=== PATIENT | female | born 1950 | race African-American/Black ===

== ENCOUNTER 2019-04-24 12:51 | Inpatient (IN) | payer OTHER ==
--- NOTE | 2019-04-24 13:19 | PDOC ---
Rapid Medical Evaluation Time Seen by Provider: 04/24/19 13:14 Medical Evaluation: Allergies Allergy/AdvReac Type Severity Reaction Status Date / Time No Known Allergies Allergy Verified 02/23/13 19:53 04/24/19 13:14 This patient had a rapid evaluation in triage cc: adverse reaction to antibiotics HPI: Patient reports diagnosed with pneumonia taking antibiotics but vomits whenever she takes the antibiotics. Continues with coughing and shortness of breath PE: appears well, hoarseness of voice lungs + rales on left lower lung heart [id number] Orders: chest xray This patient will proceed to main ed for further evaluation Discharge Disposition - Diagnosis Vomiting - Referrals - Patient Instructions - Post Discharge Activity
--- NOTE | 2019-04-24 14:25 | PDOC ---
Attending Attestation - Resident Resident Name: Shady Eaton - HPI HPI: 04/24/19 17:55 Pt presents to the ED complaining of productive cough that is not resolving with outpatient doxycycline. Denies fever. Complains of nausea and vomiting with taking the antibiotic only. History of pulmonary fibrosis. - Physicial Exam PE: 04/24/19 18:00 Agree with resident exam. PAtient is well appearing and is speaking in complete sentences, but has diffuse rhonchi on exam. - Medical Decision Making 04/24/19 18:02 Pt presents to the ED for PNA. Given that the patient has not improved on antibiotic treatment, will admit to medicine for inpatient treatment. 04/24/19 18:02
[2019-04-24] MEDS ORDERED: LACTATED RINGERS SOLUTION 1000 ML INFUS.BAG IV STA (14:35)
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
[2019-04-24] MEDS ORDERED: CEFTRIAXONE 2,000 MG in DEXTROSE 5%-WATER - 50 ML IVPB ONE (14:37)
[2019-04-24] MEDS ORDERED: AZITHROMYCIN IVPB 500 MG in DEXTROSE 5%-WATER - 250 ML IVPB ONE (14:38)
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
[2019-04-24] MEDS ORDERED: ACETAMINOPHEN 1000 MG/100 ML VIAL (NON FORMULARY) IVPB ONE (14:51)
[2019-04-24] MEDS ORDERED: ACETAMINOPHEN INJECTION 100 ML IVPB ONE (14:58)
[2019-04-24] MEDS ORDERED: AZITHROMYCIN IVPB 500 MG/250 ML BAG IVPB ONE (15:21)
[2019-04-24 15:22] LABS: BASO % 0.4 % (0-2.0); HEMATOCRIT 43.4 % (32.4-45.2); LYMPH % 54.5 % (8-40); MCH 23.2 pg (25.7-33.7); MCHC 32.4 g/dl (32.0-36.0); MEAN CELL VOLUME 71.7 fl (80-96); MEAN PLT VOLUME 8.2 fl (7.5-11.1); MONO % 18.5 % (3.8-10.2); NEUT % 26.6 % (42.8-82.8); PLATELET COUNT 205 K/MM3 (134-434); RBC 6.05 M/mm3 (3.60-5.2); WHITE BLOOD COUNT 3.4 K/mm3 (4.0-10.0)
[2019-04-24] MEDS ORDERED: CEFTRIAXONE 2 GM/100 ML BAG IVPB ONE (15:22)
[2019-04-24] MEDS ORDERED: ALBUTEROL SO4 2.5/IPRATROPIUM 0.5 INH SOL 3 ML VIAL.NEB. NEB ONE ×2 (15:22→15:46)
[2019-04-24 15:24] LABS: VENOUS PC02 45.1 mmHg (38-52); VENOUS PH 7.42 (7.31-7.41); VENOUS PO2 < 49 mmHg (28-48)
[2019-04-24 15:35] LABS: INR 1.1 (0.83-1.09)
[2019-04-24 15:35] LABS: URINE APPEARANCE CLEAR; URINE BILIRUBIN NEGATIVE (NEGATIVE); URINE COLOR YELLOW; URINE GLUCOSE (UA) NEGATIVE (NEGATIVE); URINE KETONE 1+ (NEGATIVE); URINE LEUK ESTERASE NEGATIVE (NEGATIVE); URINE NITRITE NEGATIVE (NEGATIVE); URINE PROTEIN NEGATIVE (NEGATIVE)
[2019-04-24 15:38] LABS: ACTIVATED PTT 33.4 SECONDS (25.2-36.5)
[2019-04-24 15:51] LABS: ALBUMIN 3.7 g/dl (3.4-5.0); ALK PHOS 61 U/L (45-117); ANION GAP 9 MMOL/L (8-16); BILIRUBIN,TOTAL 0.5 mg/dL (0.2-1); BLOOD UREA NITROGEN 10.5 mg/dL (7-18); CALCIUM 8.5 mg/dL (8.5-10.1); CHLORIDE 102 mmol/L (98-107); CO2 29 mmol/L (21-32); CREATININE 0.9 mg/dL (0.55-1.3); GLUCOSE,RANDOM 91 mg/dL (74-106); POTASSIUM 3.4 mmol/L (3.5-5.1); SGOT/AST 39 U/L (15-37); SGPT/ALT 38 U/L (13-61); SODIUM 140 mmol/L (136-145); TOT PROT 7.6 g/dl (6.4-8.2)
--- NOTE | 2019-04-24 16:27 | EKG ---
Test Reason : Blood Pressure : / mmHG Vent. Rate : 088 BPM Atrial Rate : 088 BPM P-R Int : 168 ms QRS Dur : 076 ms QT Int : 370 ms P-R-T Axes : 069 065 026 degrees QTc Int : 447 ms NORMAL SINUS RHYTHM POSSIBLE LEFT ATRIAL ENLARGEMENT POOR R WAVE PROGRESSION ABNORMAL ECG WHEN COMPARED WITH ECG OF 23-FEB-2013 20:30, NO SIGNIFICANT CHANGE WAS FOUND Confirmed by Jules Doyle ([id number]) on 04/24/2019 4:26:53 PM Referred By: Confirmed By:Jules Doyle
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
[2019-04-24] MEDS ORDERED: ALBUTEROL SO4 0.083% IH SOL 2.5 MG/3 ML VIAL.NEB. NEB PRN (20:28)
[2019-04-25] MEDS: LEVOTHYROXINE NA 88 MCG TABLET (FP) PO SCH (06:20)
[2019-04-25 08:30] LABS: BASO % 0.9 % (0-2.0); EOS % 0.1 % (0-4.5); HEMATOCRIT 38.8 % (32.4-45.2); HEMOGLOBIN 12.4 GM/dL (10.7-15.3); LYMPH % 58.3 % (8-40); MCHC 31.9 g/dl (32.0-36.0); MONO % 19.7 % (3.8-10.2); PLATELET COUNT 184 K/MM3 (134-434); RBC 5.39 M/mm3 (3.60-5.2); RDW 15.8 % (11.6-15.6); WHITE BLOOD COUNT 3.3 K/mm3 (4.0-10.0)
[2019-04-25 08:48] LABS: ALBUMIN 3.2 g/dl (3.4-5.0); BILIRUBIN,TOTAL 0.7 mg/dL (0.2-1); BLOOD UREA NITROGEN 6.6 mg/dL (7-18); CALCIUM 7.8 mg/dL (8.5-10.1); CREATININE 0.7 mg/dL (0.55-1.3); POTASSIUM 3.5 mmol/L (3.5-5.1); TOT PROT 6.6 g/dl (6.4-8.2)
[2019-04-25] MEDS ORDERED: cefTRIAXone SODIUM 1 GM VIAL ONE (09:08)
[2019-04-25] MEDS ORDERED: DEXTROSE 5%-WATER - 50 ML IVPB ONE (09:09)
[2019-04-25] MEDS: CEFTRIAXONE 1 GM in DEXTROSE 5%-WATER - 50 ML IVPB SCH (09:23)
[2019-04-25] MEDS: AZITHROMYCIN IVPB 500 MG/250 ML BAG IVPB SCH (10:06)
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
[2019-04-25] MEDS: methylPREDNISolone NA SUCC 40 MG/1 ML VIAL IVPUSH SCH (16:02)
[2019-04-25 16:04] VITALS: BMI 33.2
[2019-04-25] MEDS: IBUPROFEN 400 MG TABLET (FP) PO ONE ×2 (17:48→18:58)
[2019-04-25] MEDS ORDERED: ACETAMINOPHEN 325 MG TABLET (FP) PO ONE (19:45)
[2019-04-25] MEDS ORDERED: ACETAMINOPHEN 325 MG TABLET (FP) PO PRN (21:45)
[2019-04-26] MEDS: methylPREDNISolone NA SUCC 40 MG/1 ML VIAL IVPUSH SCH ×2 (02:22→14:16)
[2019-04-26] MEDS: LEVOTHYROXINE NA 88 MCG TABLET (FP) PO SCH (06:43)
--- NOTE | 2019-04-26 09:42 | PN ---
Progress Note, Physician History of Present Illness: Pt's breathing is slightly better, no SOB, no CP, no palpitations, no abd pain, o diarrhea. Pt's is c/o BROWER, frontal for more than a week. Pt 's is at bedside; both are informing me that they decided not ot take the Prednisone as has to many SE. - Current Medication List Current Medications: Active Medications Acetaminophen (Tylenol -) 650 mg PO Q6H PRN PRN Reason: PAIN Albuterol Sulfate (Ventolin 0.083% Nebulizer Soln -) 1 amp NEB Q6H PRN PRN Reason: SHORT OF BREATH/WHEEZING Azithromycin (Zithromax 500mg Ivpb (Pre-Docked)) 500 mg in 250 mls @ 250 mls/ hr IVPB DAILY [facility] Last Admin: 04/25/19 10:06 Dose: 250 mls/hr Ceftriaxone Sodium 1 gm/ (Dextrose) 50 mls @ 100 mls/hr IVPB DAILY [facility] Last Admin: 04/25/19 09:23 Dose: 100 mls/hr Levothyroxine Sodium (Synthroid -) 88 mcg PO ACBK [facility] Last Admin: 04/26/19 06:43 Dose: 88 mcg Methylprednisolone Sodium Succinate (Solu-Medrol -) 40 mg IVPUSH Q12H [facility] Last Admin: 04/26/19 02:22 Dose: 40 mg Metoprolol Succinate (Toprol Xl -) 50 mg PO DAILY [facility] Last Admin: 04/25/19 09:23 Dose: 50 mg - Objective Vital Signs: Vital Signs Constitutional: Yes: No Distress, Calm Cardiovascular: Yes: Regular Rate and Rhythm, S1, S2 Respiratory: Yes: Regular, Rhonchi (bilaterally) Gastrointestinal: Yes: Normal Bowel Sounds, Soft. No: Tenderness Edema: No Neurological: Yes: Alert, Oriented Labs: CBC, BMP 04/25/19 07:30 04/25/19 07:34 INR, PTT INR 1.10 (0.83-1.09) H 04/24/19 14:45 Problem List - Problems (1) Hypoxia Code(s): R09.02 - HYPOXEMIA (2) Leukopenia Code(s): D72.819 - DECREASED WHITE BLOOD CELL COUNT, UNSPECIFIED Qualifiers: Leukopenia type: unspecified Qualified Code(s): D72.819 - Decreased white blood cell count, unspecified (3) Pneumonia Code(s): J18.9 - PNEUMONIA, UNSPECIFIED ORGANISM Qualifiers: Pneumonia type: due to unspecified organism Laterality: unspecified laterality Lung location: unspecified part of lung Qualified Code(s): J18.9 - Pneumonia, unspecified organism (4) HTN (hypertension) Code(s): I10 - ESSENTIAL (PRIMARY) HYPERTENSION (5) Hypothyroidism Code(s): E03.9 - HYPOTHYROIDISM, UNSPECIFIED Assessment/Plan IV antibiotics Pulmonary consult is appreciated. Incentive spirometry OOBTC Pt's condition was d/w pt's nurse (Olivia) at bedside. I recommended to pt ot talk with senior technical specialist about her concer. Tylenol and Motrin for BROWER This is a late entry ( pt as seen around 6:30 PM). AM labs
[2019-04-26 11:08] LABS: HEMATOCRIT 42.3 % (32.4-45.2); HEMOGLOBIN 13.6 GM/dL (10.7-15.3); MCH 23.1 pg (25.7-33.7); MCHC 32.2 g/dl (32.0-36.0); MEAN CELL VOLUME 71.7 fl (80-96); MEAN PLT VOLUME 8.2 fl (7.5-11.1); PLATELET COUNT 209 K/MM3 (134-434); RBC 5.91 M/mm3 (3.60-5.2); RDW 15.9 % (11.6-15.6); WHITE BLOOD COUNT 2.3 K/mm3 (4.0-10.0)
[2019-04-26 11:35] LABS: ALBUMIN 3.6 g/dl (3.4-5.0); BILIRUBIN,TOTAL 0.4 mg/dL (0.2-1); BLOOD UREA NITROGEN 6.6 mg/dL (7-18); CALCIUM 8.5 mg/dL (8.5-10.1); POTASSIUM 3.2 mmol/L (3.5-5.1); TOT PROT 7.8 g/dl (6.4-8.2)
[2019-04-26] MEDS ORDERED: cefTRIAXone SODIUM 1 GM VIAL ONE (12:06)
[2019-04-26] MEDS ORDERED: DEXTROSE 5%-WATER - 50 ML IVPB ONE (12:07)
--- NOTE | 2019-04-26 12:28 | PN ---
Progress Note, Physician History of Present Illness: PULMONARY ALERT,FEELING BETTER,LESS DYSPNEIC - Current Medication List Current Medications: Active Medications Acetaminophen (Tylenol -) 650 mg PO Q6H PRN PRN Reason: PAIN Albuterol Sulfate (Ventolin 0.083% Nebulizer Soln -) 1 amp NEB Q6H PRN PRN Reason: SHORT OF BREATH/WHEEZING Azithromycin (Zithromax 500mg Ivpb (Pre-Docked)) 500 mg in 250 mls @ 250 mls/ hr IVPB DAILY [facility] Last Admin: 04/25/19 10:06 Dose: 250 mls/hr Ceftriaxone Sodium 1 gm/ (Dextrose) 50 mls @ 100 mls/hr IVPB DAILY [facility] Last Admin: 04/25/19 09:23 Dose: 100 mls/hr Levothyroxine Sodium (Synthroid -) 88 mcg PO ACBK [facility] Last Admin: 04/26/19 06:43 Dose: 88 mcg Methylprednisolone Sodium Succinate (Solu-Medrol -) 40 mg IVPUSH Q12H [facility] Last Admin: 04/26/19 02:22 Dose: 40 mg Metoprolol Succinate (Toprol Xl -) 50 mg PO DAILY [facility] Last Admin: 04/26/19 10:55 Dose: 50 mg - Objective Vital Signs: Vital Signs Temperature 98.4 F 04/26/19 06:00 Pulse Rate 68 04/26/19 06:00 Respiratory Rate 18 04/26/19 06:00 Blood Pressure 125/62 04/26/19 06:00 O2 Sat by Pulse Oximetry (%) 94 L 04/25/19 21:00 Constitutional: Yes: Well Nourished, Calm Eyes: Yes: WNL HENT: Yes: WNL Neck: Yes: WNL Cardiovascular: Yes: Regular Rate and Rhythm, S1, S2 Respiratory: Yes: Wheezes (SCATTERED KAI WHEEZES) Gastrointestinal: Yes: Normal Bowel Sounds, Soft Extremities: Yes: WNL Edema: No Labs: CBC, BMP 04/26/19 10:25 04/26/19 10:25 INR, PTT INR 1.10 (0.83-1.09) H 04/24/19 14:45 Assessment/Plan Problem List - Problems (1) HTN (hypertension) Code(s): I10 - ESSENTIAL (PRIMARY) HYPERTENSION (2) Hypothyroidism Code(s): E03.9 - HYPOTHYROIDISM, UNSPECIFIED (3) Hypoxia Code(s): R09.02 - HYPOXEMIA (4) Pneumonia Code(s): J18.9 - PNEUMONIA, UNSPECIFIED ORGANISM Qualifiers: Pneumonia type: due to unspecified organism Laterality: unspecified laterality Lung location: unspecified part of lung Qualified Code(s): J18.9 - Pneumonia, unspecified organism (5) SOB (shortness of breath) Code(s): R06.02 - SHORTNESS OF BREATH (6) Tachypnea Code(s): R06.82 - TACHYPNEA, NOT ELSEWHERE CLASSIFIED Assessment/Plan ABX: Rocephin & Zithromax Supplemental O2 as needed BD TX Short course of Medrol No smoking was discussed Outpatient PFTs once stable VTE prophylaxis Chest ct DR CONROY
[2019-04-26] MEDS: CEFTRIAXONE 1 GM in DEXTROSE 5%-WATER - 50 ML IVPB SCH (13:20)
[2019-04-26] MEDS: AZITHROMYCIN IVPB 500 MG/250 ML BAG IVPB SCH (14:16)
[2019-04-26] MEDS ORDERED: POTASSIUM CHLORIDE TABS 20 MEQ TABLET.ER (FP) PO ONE (17:25)
--- NOTE | 2019-04-26 17:29 | PN ---
Progress Note, Physician History of Present Illness: Pt's breathing is slightly better, no SOB, no CP, no palpitations, no abd pain, o diarrhea. pt is sitting comfortably in the chair. - Current Medication List Current Medications: Active Medications Acetaminophen (Tylenol -) 650 mg PO Q6H PRN PRN Reason: PAIN Albuterol Sulfate (Ventolin 0.083% Nebulizer Soln -) 1 amp NEB Q6H PRN PRN Reason: SHORT OF BREATH/WHEEZING Azithromycin (Zithromax 500mg Ivpb (Pre-Docked)) 500 mg in 250 mls @ 250 mls/ hr IVPB DAILY [facility] Last Admin: 04/26/19 14:16 Dose: 250 mls/hr Ceftriaxone Sodium 1 gm/ (Dextrose) 50 mls @ 100 mls/hr IVPB DAILY [facility] Last Admin: 04/26/19 13:20 Dose: 100 mls/hr Levothyroxine Sodium (Synthroid -) 88 mcg PO ACBK [facility] Last Admin: 04/26/19 06:43 Dose: 88 mcg Methylprednisolone Sodium Succinate (Solu-Medrol -) 40 mg IVPUSH Q12H [facility] Last Admin: 04/26/19 14:16 Dose: 40 mg Metoprolol Succinate (Toprol Xl -) 50 mg PO DAILY [facility] Last Admin: 04/26/19 10:55 Dose: 50 mg Montelukast Sodium (Singulair -) 10 mg PO ONCE ONE Stop: 04/26/19 17:27 Potassium Chloride (K-Dur -) 40 meq PO ONCE ONE Stop: 04/26/19 17:26 - Objective Vital Signs: Vital Signs Temperature 98.4 F 04/26/19 14:00 Pulse Rate 74 04/26/19 14:00 Respiratory Rate 18 04/26/19 14:00 Blood Pressure 145/67 04/26/19 14:00 O2 Sat by Pulse Oximetry (%) 94 L 04/25/19 21:00 Constitutional: Yes: No Distress, Calm Cardiovascular: Yes: Regular Rate and Rhythm, S1, S2 Respiratory: Yes: Regular, Rhonchi (bilateral). No: Wheezes Gastrointestinal: Yes: Normal Bowel Sounds, Soft. No: Tenderness Edema: No Neurological: Yes: Alert, Oriented Labs: CBC, BMP 04/26/19 10:25 04/26/19 10:25 INR, PTT INR 1.10 (0.83-1.09) H 04/24/19 14:45 Problem List - Problems (1) Hypoxia Code(s): R09.02 - HYPOXEMIA (2) Leukopenia Code(s): D72.819 - DECREASED WHITE BLOOD CELL COUNT, UNSPECIFIED Qualifiers: Leukopenia type: unspecified Qualified Code(s): D72.819 - Decreased white blood cell count, unspecified (3) Pneumonia Code(s): J18.9 - PNEUMONIA, UNSPECIFIED ORGANISM Qualifiers: Pneumonia type: due to unspecified organism Laterality: unspecified laterality Lung location: unspecified part of lung Qualified Code(s): J18.9 - Pneumonia, unspecified organism (4) HTN (hypertension) Code(s): I10 - ESSENTIAL (PRIMARY) HYPERTENSION (5) Hypothyroidism Code(s): E03.9 - HYPOTHYROIDISM, UNSPECIFIED (6) Hypokalemia Code(s): E87.6 - HYPOKALEMIA Assessment/Plan IV antibiotics Pulmonary consult is appreciated. Incentive spirometry OOBTC Replete K; monitor in AM, check Mg Pre and post in AM AM labs
[2019-04-26] MEDS: MONTELUKAST NA 10 MG TABLET PO ONE ×2 (18:53→21:29)
[2019-04-27] MEDS: methylPREDNISolone NA SUCC 40 MG/1 ML VIAL IVPUSH SCH ×2 (02:55→14:32)
[2019-04-27] MEDS: LEVOTHYROXINE NA 88 MCG TABLET (FP) PO SCH (06:30)
[2019-04-27 07:54] LABS: HEMATOCRIT 41.5 % (32.4-45.2); HEMOGLOBIN 13.6 GM/dL (10.7-15.3); MCH 23.7 pg (25.7-33.7); MCHC 32.9 g/dl (32.0-36.0); MEAN CELL VOLUME 72.1 fl (80-96); MEAN PLT VOLUME 8.4 fl (7.5-11.1); PLATELET COUNT 204 K/MM3 (134-434); RBC 5.75 M/mm3 (3.60-5.2); RDW 15.7 % (11.6-15.6)
[2019-04-27 08:17] LABS: ALBUMIN 3.5 g/dl (3.4-5.0); BILIRUBIN,TOTAL 0.4 mg/dL (0.2-1); BLOOD UREA NITROGEN 8.7 mg/dL (7-18); CALCIUM 8.3 mg/dL (8.5-10.1); CREATININE 0.7 mg/dL (0.55-1.3); MAGNESIUM 2.6 mg/dL (1.8-2.4); POTASSIUM 3.8 mmol/L (3.5-5.1); TOT PROT 7.2 g/dl (6.4-8.2)
--- NOTE | 2019-04-27 08:26 | PN ---
Progress Note, Physician Chief Complaint: feeling better less cough less SOB afebrile no CP - Current Medication List Current Medications: Active Medications Acetaminophen (Tylenol -) 650 mg PO Q6H PRN PRN Reason: PAIN Albuterol Sulfate (Ventolin 0.083% Nebulizer Soln -) 1 amp NEB Q6H PRN PRN Reason: SHORT OF BREATH/WHEEZING Azithromycin (Zithromax 500mg Ivpb (Pre-Docked)) 500 mg in 250 mls @ 250 mls/hr IVPB DAILY [facility] Last Admin: 04/26/19 14:16 Dose: 250 mls/hr Documented by: Ceftriaxone Sodium 1 gm/ (Dextrose) 50 mls @ 100 mls/hr IVPB DAILY [facility] Last Admin: 04/26/19 13:20 Dose: 100 mls/hr Documented by: Levothyroxine Sodium (Synthroid -) 88 mcg PO ACBK [facility] Last Admin: 04/26/19 06:43 Dose: 88 mcg Documented by: Methylprednisolone Sodium Succinate (Solu-Medrol -) 40 mg IVPUSH Q12H [facility] Last Admin: 04/27/19 02:55 Dose: 40 mg Documented by: Metoprolol Succinate (Toprol Xl -) 50 mg PO DAILY [facility] Last Admin: 04/26/19 10:55 Dose: 50 mg Documented by: - Objective Vital Signs: Vital Signs Temperature 98.7 F 04/27/19 06:00 Pulse Rate 66 04/27/19 06:00 Respiratory Rate 18 04/27/19 06:00 Blood Pressure 140/68 04/27/19 06:00 O2 Sat by Pulse Oximetry (%) 97 04/26/19 21:00 Constitutional: Yes: No Distress, Calm Eyes: Yes: Conjunctiva Clear HENT: Yes: Atraumatic Neck: Yes: Supple Cardiovascular: Yes: Regular Rate and Rhythm Respiratory: Yes: CTA Bilaterally Gastrointestinal: Yes: Soft. No: Tenderness Musculoskeletal: No: Joint Stiffness, Joint Swelling Extremities: No: Cold, Cool, Cyanosis Edema: No Integumentary: No: Rash, Venous Stasis Changes Neurological: Yes: Alert, Oriented ...Motor Strength: WNL Psychiatric: Yes: Alert, Oriented. No: Agitated, Suicidal Ideation Labs: CBC, BMP 04/27/19 07:00 04/27/19 07:00 INR, PTT INR 1.10 (0.83-1.09) H 04/24/19 14:45 - ....Imaging Other: Report Reviewed Assessment/Plan 69 YOF admitted with PNA and COPD exac IV ATB; iv steroids pulmonary f/u; pt said she saw recently cardio dr Alexander outpt and has f/u with him outpt soon PCP dr Jordy Mcpherson CBC low WBC at admission, NL Now; might be sec to PNA; needs f/u outpt heme dr Tejeda d/w pt; spep upep sent - pt advised to call me next week for results
[2019-04-27] MEDS ORDERED: DEXTROSE 5%-WATER - 50 ML IVPB ONE (09:08)
[2019-04-27] MEDS ORDERED: cefTRIAXone SODIUM 1 GM VIAL ONE (09:08)
[2019-04-27] MEDS: AZITHROMYCIN IVPB 500 MG/250 ML BAG IVPB SCH (09:33)
[2019-04-27] MEDS: HEPARIN NA (PORCINE) 5,000 UNITS/ML 1ML VIAL SQ SCH ×2 (09:33→21:26)
[2019-04-27] MEDS: CEFTRIAXONE 1 GM in DEXTROSE 5%-WATER - 50 ML IVPB SCH (09:34)
--- NOTE | 2019-04-27 10:32 | PN ---
Progress Note (short form) - Note Progress Note: Ambulating in the hallway. Breathing and cough are improving. No acute events overnight. Intake & Output 04/24/19 04/25/19 04/26/19 04/27/19 23:59 23:59 23:59 23:59 Intake Total 3300 1380 600 140 Balance 3300 1380 600 140 Weight 206 lb 3.2 oz 206 lb Last Vital Signs Temp Pulse Resp BP Pulse Ox 98.2 F 76 18 147/85 97 04/27/19 09:02 04/27/19 09:02 04/27/19 09:02 04/27/19 09:02 04/26/19 21:00 Active Medications Acetaminophen (Tylenol -) 650 mg PO Q6H PRN PRN Reason: PAIN Albuterol Sulfate (Ventolin 0.083% Nebulizer Soln -) 1 amp NEB Q6H PRN PRN Reason: SHORT OF BREATH/WHEEZING Heparin Sodium (Porcine) (Heparin -) 5,000 unit SQ BID [facility] Last Admin: 04/27/19 09:33 Dose: Not Given Documented by: Azithromycin (Zithromax 500mg Ivpb (Pre-Docked)) 500 mg in 250 mls @ 250 mls/hr IVPB DAILY [facility] Last Admin: 04/27/19 09:33 Dose: 250 mls/hr Documented by: Ceftriaxone Sodium 1 gm/ (Dextrose) 50 mls @ 100 mls/hr IVPB DAILY [facility] Last Admin: 04/27/19 09:34 Dose: 100 mls/hr Documented by: Levothyroxine Sodium (Synthroid -) 88 mcg PO ACBK [facility] Last Admin: 04/27/19 06:30 Dose: 88 mcg Documented by: Methylprednisolone Sodium Succinate (Solu-Medrol -) 40 mg IVPUSH Q12H [facility] Last Admin: 04/27/19 02:55 Dose: 40 mg Documented by: Metoprolol Succinate (Toprol Xl -) 50 mg PO DAILY [facility] Last Admin: 04/27/19 09:33 Dose: 50 mg Documented by: Constitutional: Yes: Well Nourished, Calm Eyes: Yes: WNL HENT: Yes: WNL Neck: Yes: WNL Cardiovascular: Yes: Regular Rate and Rhythm, S1, S2 Respiratory: Yes: Scattered bilateral rhonchi, no wheezes appreciated Gastrointestinal: Yes: Normal Bowel Sounds, Soft Extremities: Yes: WNL Edema: No Labs: Laboratory Results - last 24 hr 04/26/19 04/26/19 04/27/19 10:25 10:25 07:00 WBC 2.3 L 7.0 RBC 5.91 H 5.75 H Hgb 13.6 13.6 Hct 42.3 41.5 MCV 71.7 L 72.1 L MCH 23.1 L 23.7 L MCHC 32.2 32.9 RDW 15.9 H 15.7 H Plt Count 209 204 MPV 8.2 8.4 Sodium 144 Potassium 3.2 L Chloride 105 Carbon Dioxide 27 Anion Gap 11 BUN 6.6 L Creatinine 1.0 Est GFR (CKD-EPI)AfAm 66.10 Est GFR (CKD-EPI)NonAf 57.03 Random Glucose 177 H Calcium 8.5 Magnesium Total Bilirubin 0.4 AST 36 ALT 37 Alkaline Phosphatase 66 Total Protein 7.8 Albumin 3.6 04/27/19 07:00 WBC RBC Hgb Hct MCV MCH MCHC RDW Plt Count MPV Sodium 142 Potassium 3.8 Chloride 108 H Carbon Dioxide 28 Anion Gap 6 L BUN 8.7 Creatinine 0.7 Est GFR (CKD-EPI)AfAm 101.74 Est GFR (CKD-EPI)NonAf 87.78 Random Glucose 112 H Calcium 8.3 L Magnesium 2.6 H Total Bilirubin 0.4 AST 28 ALT 32 Alkaline Phosphatase 56 Total Protein 7.2 Albumin 3.5 Assessment/Plan Problem List - Problems (1) HTN (hypertension) Code(s): I10 - ESSENTIAL (PRIMARY) HYPERTENSION (2) Hypothyroidism Code(s): E03.9 - HYPOTHYROIDISM, UNSPECIFIED (3) Hypoxia Code(s): R09.02 - HYPOXEMIA (4) Pneumonia Code(s): J18.9 - PNEUMONIA, UNSPECIFIED ORGANISM Qualifiers: Pneumonia type: due to unspecified organism Laterality: unspecified laterality Lung location: unspecified part of lung Qualified Code(s): J18.9 - Pneumonia, unspecified organism (5) SOB (shortness of breath) Code(s): R06.02 - SHORTNESS OF BREATH (6) Tachypnea Code(s): R06.82 - TACHYPNEA, NOT ELSEWHERE CLASSIFIED Assessment/Plan ABX: Rocephin & Zithromax Supplemental O2 as needed BD TX Short course of Medrol Repeat CT as an outpatient 6 to 8 weeks No smoking was discussed Outpatient PFTs once stable VTE prophylaxis Dr Bryant Problem List - Problems (1) HTN (hypertension) Code(s): I10 - ESSENTIAL (PRIMARY) HYPERTENSION (2) Hypothyroidism Code(s): E03.9 - HYPOTHYROIDISM, UNSPECIFIED (3) Hypoxia Code(s): R09.02 - HYPOXEMIA (4) Pneumonia Code(s): J18.9 - PNEUMONIA, UNSPECIFIED ORGANISM Qualifiers: Pneumonia type: due to unspecified organism Laterality: unspecified laterality Lung location: unspecified part of lung Qualified Code(s): J18.9 - Pneumonia, unspecified organism (5) SOB (shortness of breath) Code(s): R06.02 - SHORTNESS OF BREATH (6) Tachypnea Code(s): R06.82 - TACHYPNEA, NOT ELSEWHERE CLASSIFIED
[2019-04-28] MEDS: methylPREDNISolone NA SUCC 40 MG/1 ML VIAL IVPUSH SCH ×2 (03:24→16:03)
[2019-04-28] MEDS: LEVOTHYROXINE NA 88 MCG TABLET (FP) PO SCH (06:41)
[2019-04-28 08:19] LABS: BASO % 0.1 % (0-2.0); HEMATOCRIT 40.9 % (32.4-45.2); HEMOGLOBIN 13.3 GM/dL (10.7-15.3); LYMPH % 19.3 % (8-40); MCH 23.2 pg (25.7-33.7); MCHC 32.6 g/dl (32.0-36.0); MEAN CELL VOLUME 71.2 fl (80-96); MEAN PLT VOLUME 8.2 fl (7.5-11.1); MONO % 5.7 % (3.8-10.2); NEUT % 74.9 % (42.8-82.8); PLATELET COUNT 219 K/MM3 (134-434); RBC 5.75 M/mm3 (3.60-5.2); RDW 15.9 % (11.6-15.6); WHITE BLOOD COUNT 8.9 K/mm3 (4.0-10.0)
[2019-04-28 09:08] LABS: ALBUMIN 3.5 g/dl (3.4-5.0); BILIRUBIN,TOTAL 0.9 mg/dL (0.2-1); BLOOD UREA NITROGEN 11.8 mg/dL (7-18); CALCIUM 8.6 mg/dL (8.5-10.1); CREATININE 0.7 mg/dL (0.55-1.3); POTASSIUM 3.7 mmol/L (3.5-5.1); TOT PROT 7.7 g/dl (6.4-8.2)
[2019-04-28] MEDS ORDERED: DEXTROSE 5%-WATER - 50 ML IVPB ONE (10:01)
[2019-04-28] MEDS ORDERED: cefTRIAXone SODIUM 1 GM VIAL ONE (10:01)
[2019-04-28] MEDS: CEFTRIAXONE 1 GM in DEXTROSE 5%-WATER - 50 ML IVPB SCH (10:57)
[2019-04-28] MEDS: HEPARIN NA (PORCINE) 5,000 UNITS/ML 1ML VIAL SQ SCH (10:57)
[2019-04-28] MEDS: AZITHROMYCIN IVPB 500 MG/250 ML BAG IVPB SCH (10:57)
--- NOTE | 2019-04-28 11:33 | DS ---
Physical Examination Vital Signs: Vital Signs Temperature 98.7 F 04/28/19 06:00 Pulse Rate 81 04/28/19 11:08 Respiratory Rate 18 04/28/19 11:08 Blood Pressure 147/72 04/28/19 11:08 O2 Sat by Pulse Oximetry (%) 95 04/27/19 21:00 Findings/Remarks: pt feels much better, wants to go home; no CP SOB cough; afebrile; d/w pulm dr Echevarria OK to go home on quick steroids taper; will order po ATB for few more days d/w pt she needs chest CT in 1-2 months to ensure infiltrates / lungs resolved; also I asked her to call me next week to check spep upep results (now pending) - repeat CBC outpt if spep upepe or CBC abNL to see heme dr Tejeda advised f/u cardio, pulmonary within 1 -2 weeks and PCP next week; I d/w pulm dr Jordy Mcpherson the above; health maintenance with PCP outpt RTER if worse or recurrent c/o script sdone; d/w pt all the above she understood and agreed pre and post O2 sat / RA before DC - pt does not need home O2 Constitutional: Yes: No Distress, Calm Eyes: Yes: Conjunctiva Clear HENT: Yes: Atraumatic Neck: Yes: Supple Cardiovascular: Yes: Regular Rate and Rhythm Respiratory: Yes: CTA Bilaterally Gastrointestinal: Yes: Soft. No: Tenderness Renal/: No: Hematuria Musculoskeletal: No: Joint Stiffness, Joint Swelling Extremities: No: Cold, Cool, Cyanosis Edema: No Integumentary: No: Rash, Venous Stasis Changes Neurological: Yes: Alert, Oriented ...Motor Strength: WNL Psychiatric: Yes: Alert, Oriented. No: Agitated, Suicidal Ideation Labs: CBC, BMP 04/28/19 07:00 04/28/19 07:00 Discharge Summary Problems reviewed: Yes Reason For Visit: SOB TACHYPNEA Current Active Problems HTN (hypertension) (Acute) Hypokalemia (Acute) Hypothyroidism (Acute) Hypoxia (Acute) Leukopenia (Acute) Pneumonia (Acute) SOB (shortness of breath) (Acute) Tachypnea (Acute) Procedures: Principal: 69 YOF admitted with PNA / COPD exac; Other Procedures: seen by pulmoanry; IV steroids, nebs; IV ATB Hospital Course: improved with above; DC home on po ATB and taper steroids; CBC low WBC at admission, spep upep pending - heme f/u outpt d/w pt instructions - scripts done Condition: Stable - Instructions Diet, Activity, Other Instructions: f/u PCP, cardiology and pulmonary in 1-2 weeks; take meds as prescribed; RTER if worse or recurrent c/o; heme evaluation outpt for low white count; f/u hospital pending labs (pt to call us next week) repeat chest CT no IVC in 1-2 months; health maintenance [employer] [facility] pap colonoscopy and mammogram per PCP; d/w pt and PCP dr Mcpherson Referrals: Grey Alexander MD [Staff Physician] - Claudy Bryant MD [Staff Physician] - Reji Tejeda MD [Staff Physician] - Viktoria Mcpherson MD [Primary Care Provider] - Disposition: HOME - Home Medications Comprehensive Discharge Medication List: Ambulatory Orders Levothyroxine Sodium [Synthroid] 88 mcg PO DAILY 04/24/19 Metoprolol Succinate 50 mg PO DAILY 04/24/19
--- NOTE | 2019-04-28 14:16 | PN ---
Progress Note, Physician History of Present Illness: PULMONARY ALERT,COMFORTABLE,-SOB - Current Medication List Current Medications: Active Medications Acetaminophen (Tylenol -) 650 mg PO Q6H PRN PRN Reason: PAIN Albuterol Sulfate (Ventolin 0.083% Nebulizer Soln -) 1 amp NEB Q6H PRN PRN Reason: SHORT OF BREATH/WHEEZING Heparin Sodium (Porcine) (Heparin -) 5,000 unit SQ BID [facility] Last Admin: 04/28/19 10:57 Dose: 5,000 unit Documented by: Azithromycin (Zithromax 500mg Ivpb (Pre-Docked)) 500 mg in 250 mls @ 250 mls/hr IVPB DAILY [facility] Last Admin: 04/28/19 10:57 Dose: 250 mls/hr Documented by: Ceftriaxone Sodium 1 gm/ (Dextrose) 50 mls @ 100 mls/hr IVPB DAILY [facility] Last Admin: 04/28/19 10:57 Dose: 100 mls/hr Documented by: Levothyroxine Sodium (Synthroid -) 88 mcg PO ACBK [facility] Last Admin: 04/28/19 06:41 Dose: 88 mcg Documented by: Methylprednisolone Sodium Succinate (Solu-Medrol -) 40 mg IVPUSH Q12H [facility] Last Admin: 04/28/19 03:24 Dose: 40 mg Documented by: Metoprolol Succinate (Toprol Xl -) 50 mg PO DAILY [facility] Last Admin: 04/28/19 10:57 Dose: 50 mg Documented by: - Objective Vital Signs: Vital Signs Temperature 98.7 F 04/28/19 06:00 Pulse Rate 81 04/28/19 11:08 Respiratory Rate 18 04/28/19 11:08 Blood Pressure 147/72 04/28/19 11:08 O2 Sat by Pulse Oximetry (%) 95 04/27/19 21:00 Constitutional: Yes: Well Nourished, Calm Eyes: Yes: WNL HENT: Yes: WNL Neck: Yes: WNL Cardiovascular: Yes: Regular Rate and Rhythm, S1, S2 Respiratory: Yes: Wheezes (FEW SCATTERED WHEEZES) Gastrointestinal: Yes: Normal Bowel Sounds, Soft Extremities: Yes: WNL Edema: No Labs: CBC, BMP 04/28/19 07:00 04/28/19 07:00 INR, PTT INR 1.10 (0.83-1.09) H 04/24/19 14:45 Assessment/Plan Problem List - Problems (1) HTN (hypertension) Code(s): I10 - ESSENTIAL (PRIMARY) HYPERTENSION (2) Hypothyroidism Code(s): E03.9 - HYPOTHYROIDISM, UNSPECIFIED (3) Hypoxia Code(s): R09.02 - HYPOXEMIA (4) Pneumonia Code(s): J18.9 - PNEUMONIA, UNSPECIFIED ORGANISM Qualifiers: Pneumonia type: due to unspecified organism Laterality: unspecified laterality Lung location: unspecified part of lung Qualified Code(s): J18.9 - Pneumonia, unspecified organism (5) SOB (shortness of breath) Code(s): R06.02 - SHORTNESS OF BREATH (6) Tachypnea Code(s): R06.82 - TACHYPNEA, NOT ELSEWHERE CLASSIFIED Assessment/Plan ABX O2 BD TX Prednisone 40 mg po daily with taper No smoking was discussed Outpatient PFTs once stable VTE prophylaxis F/u chest ct 6-8 wks to confirm resolution of infiltrates ambulatory o2 sat on ra DR CONROY
[2019-04-28 15:37] VITALS: BP 144/63; TEMP 98
[2019-04-28 15:53] VITALS: PULSE 96
[2019-05-02 15:08] LABS: TOTAL PROTEIN, URINE <4.0 mg/dL (Not Estab.)
--- NOTE | 2019-05-03 11:59 | PN ---
Progress Note (short form) - Note Progress Note: I called pt and her PCP dr Mcpherson MSpike + on IF pt to see outpt hematology ; also to f/u chest CT in 1 month as advised
== END 2019-04-28 18:16 | disposition home or self-care (01) | DRG 190 ==
LOC: JER 12:51 → SUPCPDRO 12:51 → JERBED 17:20 → J5S 20:25
PROVIDERS: ADMIT Specialist; ATTEND Specialist
DX: J44.0 Chronic obstructive pulmonary disease with (acute) lower respiratory infection (principal); J18.9 Pneumonia, unspecified organism; J98.11 Atelectasis; R09.02 Hypoxemia; J44.1 Chronic obstructive pulmonary disease with (acute) exacerbation; R11.2 Nausea with vomiting, unspecified; I10 Essential (primary) hypertension; R49.0 Dysphonia; E03.9 Hypothyroidism, unspecified; D72.819 Decreased white blood cell count, unspecified; E66.9 Obesity, unspecified; Z68.33 Body mass index [BMI] 33.0-33.9, adult; R06.02 Shortness of breath; R06.82 Tachypnea, not elsewhere classified; E87.6 Hypokalemia; F17.210 Nicotine dependence, cigarettes, uncomplicated
CPT/HCPCS: 36415; 71046-TC-FY; 71250-TC; 80053; 81003; 82803; 83605; 83735; 84155; 84156; 84157; 84165; 84484; 85025; 85027; 85610; 85651; 85730; 87040; 87070; 87086; 87205; 87899; 93005; 93010; 94761; 99285-25; J1644

== ENCOUNTER 2021-10-07 04:08 | Day surgery (SDC) | payer BC, OTHER ==
[2021-10-01 17:34] VITALS: BMI 33.2
[2021-10-07] MEDS ORDERED: MIDAZOLAM HCL 2 MG/2 ML SINGLE DOSE VIAL ONE (09:51)
[2021-10-07] MEDS ORDERED: PROPOFOL 20 ML ONE (10:22)
[2021-10-07] MEDS ORDERED: PROPOFOL 40 ML ONE (10:42)
[2021-10-07] MEDS ORDERED: DEXAMETHASONE SOD PHOSPHATE 4 MG/1 ML VIAL ONE (10:42)
[2021-10-07] MEDS ORDERED: LIDOCAINE HCL/PF 2% SDV 5ML VIAL ONE (10:42)
[2021-10-07] MEDS ORDERED: KETOROLAC TROMETHAMINE 30 MG/1 ML VIAL ONE (10:42)
[2021-10-07] MEDS ORDERED: IBUPROFEN 600 MG TABLET (FP) PO PRN (10:44)
[2021-10-07] MEDS ORDERED: ONDANSETRON 4 MG/2 ML VIAL IVPUSH PRN (10:44)
[2021-10-07] MEDS ORDERED: oxyCODONE HCL 5 MG TABLET PO PRN (10:44)
[2021-10-07] MEDS ORDERED: IBUPROFEN 800 MG/8 ML IJ IVPB PRN (10:44)
[2021-10-07] MEDS ORDERED: ELECTROLYTE-148 SOLN 1,000 ML IV SCH (10:45)
[2021-10-07 14:14] VITALS: BP 146/66; PULSE 69; RESP 18; TEMP 97.5
== END 2021-10-07 13:15 | disposition home or self-care (01) ==
LOC: JASU-SURG 04:08
PROVIDERS: ATTEND Obstetrics & Gynecology
PROC: 0UDB7ZX Extraction of Endometrium, Via Natural or Artificial Opening, Diagnostic (ICD-10-PCS; 2021-10-07)
PROC: 0UB98ZX Excision of Uterus, Via Natural or Artificial Opening Endoscopic, Diagnostic (ICD-10-PCS; principal; 2021-10-07 10:00)
DX: N95.0 Postmenopausal bleeding (principal); N84.0 Polyp of corpus uteri
CPT/HCPCS: 82962; 88305-TC; 94760